=== PATIENT | female | born 1990 | race Caucasian/White ===

== ENCOUNTER 2016-12-07 09:03 | Inpatient (IN) | payer MEDICAID ==
[~2016-12-07] VITALS: Ht 162.6 cm; Wt 52.2 kg
[2016-12-07] MEDS ORDERED: NALOXONE PREFILLED SYRINGE 2 MG/2 ML SYRINGE ONE (09:19)
--- NOTE | 2016-12-07 09:31 | NUR ---
IV LINE ACCESSED LEFT HAND 20G
[2016-12-07] MEDS ORDERED: IV NS 0.9% 1,000 ML ONE (09:40)
[2016-12-07] MEDS ORDERED: IV SET PRIMARY 1 EA INFUS.SET MC ONE ×2 (09:40→09:44)
[2016-12-07] MEDS ORDERED: IV SET PRIMARY PUMP SET 1 EA INFUS.SET MC ONE ×2 (09:40→17:09)
[2016-12-07] MEDS ORDERED: PIPERACILLIN /TAZOBACTAM 3.375 G VIAL IV ONE (09:40)
[2016-12-07] MEDS ORDERED: VANCOMYCIN 1 GM VIAL ONE (09:44)
[2016-12-07] MEDS ORDERED: PIPERACILLIN /TAZOBACTAM 3.375 G in IV D5W 50 ML IV ONE (10:00)
[2016-12-07] MEDS ORDERED: VANCOMYCIN 1 GM in IV D5W 250 ML IV ONE (10:00)
[2016-12-07] MEDS ORDERED: IV NS 0.9% 1,000 ML BAG IV ONE (10:00)
[2016-12-07 10:01] LABS: BASOPHILS % (AUTO) 0.4 % (0.0-2.0); EOSINOPHILS # (AUTO) 0.2 /CMM (0.0-0.7); EOSINOPHILS % (AUTO) 1.5 % (0.0-6.0); HEMATOCRIT 41 % (33-45); HEMOGLOBIN 13.1 g/dL (11.5-14.8); LYMPHOCYTES # (AUTO) 2.7 /CMM (0.8-4.8); LYMPHOCYTES % (AUTO) 26.8 % (20.0-44.0); MEAN CORPUSCULAR HEMOGLOBIN 29 PG (26.0-33.0); MEAN CORPUSCULAR HGB CONC 32 g/dl (31.0-36.0); MEAN CORPUSCULAR VOLUME 89 fL (82-100); MONOCYTES # (AUTO) 0.5 /CMM (0.1-1.30); MONOCYTES % (AUTO) 5.1 % (2.0-12.0); NEUTROPHILS # (AUTO) 6.7 /CMM (1.8-8.9); NEUTROPHILS % (AUTO) 66.2 % (43.0-81.0); PLATELET COUNT (AUTO) 401 /CMM (150-450); RDW COEFFICIENT OF VARIATION 11.5 (11.5-15.0); RED BLOOD CELL COUNT(AUTO) 4.59 MIL/uL (4.0-5.2); WHITE BLOOD COUNT (AUTO) 10.1 K/uL (4.3-11.0)
[2016-12-07 10:13] LABS: CALCIUM, SERUM 8.6 mg/dL (8.5-10.1); CARBON DIOXIDE 31 mmol/L (21-32); CHLORIDE 107 mmol/L (98-107); CREATININE 0.8 mg/dL (0.6-1.3); GLUCOSE 83 mg/dL (74-106); POTASSIUM 3.4 mmol/L (3.5-5.1); SODIUM SERUM 144 mmol/L (136-145); UREA NITROGEN, BLOOD 24 mg/dL (7-18)
[2016-12-07 10:17] LABS: TROPONIN I < 0.017 ng/mL (0.00-0.056)
[2016-12-07 10:23] LABS: ACETAMINOPHEN 0 ug/ml (10-30); ALANINE AMINOTRANSFERASE 39 U/L (12-78); ALBUMIN 3.6 g/dL (3.4-5.0); ALCOHOL, BLOOD < 3 mg/dL (0-0); ALKALINE PHOSPHATASE 146 U/L (46-116); ASPARTATE AMINOTRANSFERASE 24 U/L (15-37); BILIRUBIN,DIRECT 0.1 mg/dL (0.0-0.2); BILIRUBIN,TOTAL 0.2 mg/dL (0.2-1.0); SALICYLATE 1.7 mg/dL (2.8-20.0); TOTAL PROTEIN, SERUM 8.2 g/dL (6.4-8.2)
[2016-12-07 10:28] LABS: INR 1.02 (0.87-1.13); PROTHROMBIN TIME 10.9 SECS (9.5-12.7)
--- NOTE | 2016-12-07 12:18 | NUR ---
REPORT GIVEN TO PEYMAN FERNANDO FOR CONTINUITY OF CARE IN MS2
[2016-12-07] MEDS ORDERED: FEE PK DOSING 1 MIN EA MC ONE (12:59)
[2016-12-07] MEDS ORDERED: MAGNESIUM HYDROXIDE 30 ML UDC PO PRN (13:00)
[2016-12-07] MEDS ORDERED: Z GUARD REMEDY 2 OZ OINT TP PRN (13:00)
[2016-12-07] MEDS ORDERED: ONDANSETRON HCL/PF 4 MG/2 ML VIAL IVP PRN (13:00)
[2016-12-07] MEDS ORDERED: KETOROLAC TROMETHAMINE INJ 30 MG/ML VIAL IM/IV PRN (13:00)
[2016-12-07] MEDS ORDERED: ZOLPIDEM TARTRATE 5 MG TABLET PO PRN (13:00)
[2016-12-07] MEDS ORDERED: ACETAMINOPHEN 325 MG TABLET PO PRN (13:00)
[2016-12-07] MEDS ORDERED: VANCOMYCIN 1 GM in IV D5W 250 ML IV SCH (13:00)
[2016-12-07] MEDS ORDERED: MAG HYDROX/AL HYDROX/SIMETH 30 ML UDC PO PRN (13:00)
--- NOTE | 2016-12-07 13:18 | NUR ---
RN MS NOTES RECEIVED PATIENT FROM E.R. DEPARTMENT, TRANSFERRED TO THE BED, PATIENT REFUSED VITAL SIGNS, ALERT AND RESPONSIVE BUT REFUSES TO TALK TO ANY STAFF, BREATHING EVEN AND UNLABORED, NO S/SX OF DISTRESS NOTED, COVERED HERSELF UNDER THE BLANKET, REFUSES TO HAVE ANY ASSESSMENT AT THIS TIME.
--- NOTE | 2016-12-07 15:00 | NUR ---
RN MS NOTES PATIENT SEEN BY DR. CAMARA, RECEIVED ORDER FOR PSYCH CONSULT. PATIENT AGREED TO BE ASSESSED BRIEFLY, STILL SLEEPING BUT RESPONSIVE.
[2016-12-07] MEDS ORDERED: IV NS 0.9% 250 ML IV ONE (17:08)
[2016-12-07] MEDS ORDERED: SECONDARY IV SET 1 EA INFUS.SET MC ONE ×2 (17:09→18:31)
[2016-12-07] MEDS: PIPERACILLIN /TAZOBACTAM 3.375 G in IV D5W 50 ML IV SCH ×2 (17:15→23:53)
--- NOTE | 2016-12-07 17:49 | NUR ---
RN MS NOTES DR. CAMARA MADE AWARE OF K LEVEL OF 3.4 WITH NEW ORDER OF KDUR 20MEQ X1. ORDER NOTED AND CARRIED OUT. PATIENT STILL SLEEPING BUT AROUSABLE. SITTER AT BEDSIDE, WILL CONTINUE TO MONITOR.
[2016-12-07] MEDS ORDERED: POTASSIUM CHLORIDE 20 MEQ TAB.PRT.SR PO ONE (18:00)
[2016-12-07] MEDS: VANCOMYCIN 0.75 GM in IV D5W 250 ML IV SCH (18:42)
--- NOTE | 2016-12-07 19:16 | NUR ---
RN MS NOTES PATIENT IN BED, ASLEEP BUT AROUSABLE, PATIENT STILL REFUSED VITAL SIGNS AND SKIN ASSESSMENT ON HER BACK, NO SHORTNESS OF BREATH, NO DISTRESS NOTED, IV ON LEFT HAND PATENT AND INTACT, ALL DUE MEDS GIVEN ORDERED, SITTER AT BEDSIDE, UNABLE TO INTERVIEW PATIENT FOR PAST MEDICAL HISTORY, REFUSES TO ANSWER QUESTIONS, CALL LIGHT WITHIN REACH, ENDORSED TO BEAD FORMING MACHINE OPERATOR FOR ARIANA.
--- NOTE | 2016-12-07 19:30 | NUR ---
MS RN NOTES RECEIVED ON BED SLEEPING,AROUSABLE TO VERBAL STIMULI,NS AT TKO INFUSING ON LEFT HAND,SITE PATENT.ON 5150 HOLD,SITTER AT BEDSIDE FOR SAFETY.CALL LIGHT IN REACH,NEEDS ANTICIPATED.WILL CONTINUE TO MONITOR STATUS.
[2016-12-07 19:51] VITALS: BP 102/47
--- NOTE | 2016-12-08 | NUR ---
MS RN NOTES DUE ZOSYN 3.375GM IVPB GIRMA.SITTER AT BEDSIDE
--- NOTE | 2016-12-08 02:00 | NUR ---
MS RN NOTES DUE VANCOMYCIN 0.75GM IVPB HUNG
[2016-12-08] MEDS: VANCOMYCIN 0.75 GM in IV D5W 250 ML IV SCH ×2 (02:05→10:00)
--- NOTE | 2016-12-08 03:13 | NUR ---
MS RN NOTES AWAKE,ABLE TO AMBULATE TO THE TOILET ASSISTED BY KIERAN CHESTER
[2016-12-08] MEDS: PIPERACILLIN /TAZOBACTAM 3.375 G in IV D5W 50 ML IV SCH ×2 (05:55→12:00)
--- NOTE | 2016-12-08 06:00 | NUR ---
MS RN NOTES DUE ZOSYN 3.375GM IVPB HUNG
--- NOTE | 2016-12-08 06:31 | NUR ---
MS RN NOTES CALM AND QUIET,ASLEEP MOST OF THE NIGHT,ABLE TO AMBULATE TO THE BATHROOM ASSISTED BY BO CHESTER.FOR PSYCH CONSULT AWAITING FOR DR LAW TO SEE PATIENT.IV ABX TOLERATED WELL.NO ADVERSE REACTION NOTED.WILL ENDORSE TO ARVIN FERNANDO FOR ARIANA.
--- NOTE | 2016-12-08 06:43 | NUR ---
MS RN NOTES VOMITED X1,MOSTLY UNDIGESTED FOOD.MEDICATED WITH ZOFRAN 4MG IVP ORDERED.
--- NOTE | 2016-12-08 07:15 | NUR ---
RN MS NOTES PATIENT IN BED, ALERT AND ORIENTED, NO DISTRESS NOTED, NO FURTHER EPISODE OF VOMITING, PIV PATENT AND INTACT, NEEDS ATTENDED AND MET, SITTER AT BEDSIDE, SAFETY MEASURES IN PLACED, CALL LIGHT WITHIN REACH, WILL CONTINUE TO MONITOR.
[2016-12-08] MEDS ORDERED: PANTOPRAZOLE 40 MG TABLET.DR PO SCH (07:30)
[2016-12-08 08:00] VITALS: BP 101/62
--- NOTE | 2016-12-08 08:00 | NUR ---
RN MS NOTES PATIENT BECAME ANXIOUS AND INSISTED ON GOING AMA, BUT THIS AIRCRAFT SKIN BURNISHER EXPLAINED SHE IS CURRENTLY ON A 5150 HOLD AND A PSYCHIATRIST HAS TO EXAMINE AND EVALUATE HER BEFORE SHE CAN LEAVE AMA, PATIENT BECAME AGITATED, SCREAMING AND YELLING ON THE HALLWAY, SECURITY WAS CALLED, [facility] OFFICE COORDINATOR MADE AWARE AND CAME TO THE FLOOR, WE PLACED A CALL TO DR. LAW AND LEFT A MESSAGE, STILL WAITING FOR A CALL BACK.
--- NOTE | 2016-12-08 09:03 | NUR ---
RN MS NOTES PATIENT IN BED, CALM BUT REFUSES ANY CARE, SECURITY AND SITTER AT BEDSIDE, STILL WAITING FOR DR. LAW'S CALL BACK, DR. BAI ATTENDING MADE AWARE OF SITUATION.
--- NOTE | 2016-12-08 11:00 | NUR ---
RN MS NOTES PATIENT SEEN BY DR. BAI, TRIED TO EXPLAIN TO THE PATIENT RE: TREATMENT NEEDED AND 5150 HOLD, PATIENT BECOMES AGITATED, REFUSING CARE. NO NEW ORDER AT THIS TIME.
--- NOTE | 2016-12-08 12:05 | NUR ---
BOTANY TECHNICIAN - AMA PATIENT SEEN BY DR. LAW (PSYCH), AND CLEARED THE PATIENT FROM THE 5150 HOLD, PATIENT STATED SHE HAS NO SUICIDAL IDEATION OR ANY INTENTION TO HARM ANYONE. PATIENT INSISTED OF GOING HOME, REFUSED ALL MEDICAL CARE, SIGNED AMA PAPERWORKS, PIV REMOVED, AND LEFT THE FACILITY IMMEDIATELY ACCOMPANIED BY THE SITTER AND SECURITY DOWN TO THE LOBBY. DR. BAI MADE AWARE PATIENT LEFT AMA. Addendum: 12/08/16 at 1231 by ARVIN DENNISON RN ADDENDUM: PER DR. BAI, PATIENT SHOULD NOT BE RE-ADMITTED IN THE ER. NURSING CHROME TANNING DRUM OPERATOR MADE AWARE.
== END 2016-12-08 12:05 | disposition left against medical advice (07) | DRG 383 ==
LOC: ER 09:05 → MEDSG2 12:00
PROVIDERS: ADMIT Family Medicine; ATTEND Family Medicine
DX: L03.113 Cellulitis of right upper limb (principal); G92 Toxic encephalopathy; E87.6 Hypokalemia; F17.210 Nicotine dependence, cigarettes, uncomplicated; Z59.0 Homelessness; F11.229 Opioid dependence with intoxication, unspecified; L02.413 Cutaneous abscess of right upper limb
CPT/HCPCS: 36415; 71010-TC; 76882; 80048-TC; 80076-TC; 83605-TC; 84484-TC; 85025-TC; 85730-TC; 87040-TC; 87081-TC; A4606; G0480; G6039-TC; J2310; J2405; J2543; J3370; J7030; J7050; J7060; Z7610